=== PATIENT | male | born 1990 ===

== ENCOUNTER 2016-09-10 09:54 | Emergency (ER) | payer OTHER ==
[2016-09-10 10:24] VITALS: RESP 18; O2SAT 99
[2016-09-10 11:53] LABS: BASO % 0.5 % (0.0-2.0); EOS # 0.6 K/uL (0.0-0.7); EOS % 7.6 % (0.0-4.0); HEMATOCRIT 45.2 % (35.0-51.0); LYMPH # 2.2 K/uL (1.0-4.3); MEAN CORPUSCULAR HGB CONC 34.5 g/dL (33.0-37.0); MONO # 0.5 K/uL (0.0-0.8); MONO % 6.4 % (0.0-10.0); NEUT # 4.2 K/uL (1.8-7.0); NEUT % 56.5 % (50.0-75.0); NRBC % 0.2 % (0.0-0.0); RED CELL DISTRIBUTION WIDTH 13.5 % (11.5-14.5); WHITE BLOOD COUNT 7.4 K/uL (4.8-10.8)
[2016-09-10 12:09] LABS: ALB/GLOB RATIO 1.3 (1.0-2.1); ALKALINE PHOSPHATASE 54 U/L (38-126); ALT/SGPT 53 U/L (21-72); AST/SGOT 36 U/L (17-59); BILIRUBIN,TOTAL 0.3 mg/dl (0.2-1.3); BLOOD UREA NITROGEN 10 mg/dl (9-20); CALCIUM 9.7 mg/dL (8.4-10.2); CARBON DIOXIDE 24 mmol/L (22-30); CHLORIDE 104 mmol/L (98-107); GFR AFRICAN-AMERICAN > 60; GLUCOSE,RANDOM 94 mg/dL (75-110); POTASSIUM 4.1 MMOL/L (3.6-5.0); SODIUM 141 mmol/l (132-148)
--- NOTE | 2016-09-10 12:12 | ED PDOC ---
HPI: General Adult Time Seen by Provider: 09/10/16 10:35 Chief Complaint (Nursing): Dizziness/Lightheaded Chief Complaint (Provider): SOB History Per: Patient History/Exam Limitations: no limitations Current Symptoms Are (Timing): Intermittent Episodes Additional Complaint(s): Nirav Corrales is a 26 year old male with no surgical history and a history of HTN that presents to the ED with a chief complaint of intermittent shortness of breath and dizziness that began one day ago. He denies any chest pain, but states that he has lower back pain that worsens when he is lifting. Otherwise he has experienced no back pain, fever, or vomiting. Past Medical History Reviewed: Historical Data, Nursing Documentation, Vital Signs Vital Signs: Last Vital Signs Temp 97.7 F 09/10/16 14:25 Pulse 52 L 09/10/16 14:25 Resp 18 09/10/16 14:25 BP 127/92 H 09/10/16 14:25 Pulse Ox 99 09/10/16 14:25 - Medical History PMH: HTN - Surgical History Surgical History: No Surg Hx - Family History Family History: States: Unknown Family Hx - Social History Current smoker - smoking cessation education provided: No Alcohol: None Drugs: Denies - Home Medications Home Medications: Ambulatory Orders Medication Instructions Recorded Meclizine HCl [Antivert] 25 mg PO TID #15 tablet 06/19/15 Albuterol HFA [Ventolin HFA 90 2 puff IH [id number] PRN #1 inhaler 07/10/15 mcg/actuation (8 g)] Prednisone 2 tab PO DAILY #10 tablet 07/10/15 Epinephrine HCl [Epipen 0.3 mg IM ONCE PRN #1 packet 04/30/16 Auto-Injector] predniSONE [predniSONE Tab] 20 mg PO DAILY #12 tab 04/30/16 - Allergies Allergies/Adverse Reactions: Allergies Allergy/AdvReac Type Severity Reaction Status Date / Time FISH Allergy REDNESS Verified 09/10/16 10:15 Review of Systems Constitutional: Negative for: Fever Cardiovascular: Negative for: Chest Pain Respiratory: Positive for: Shortness of Breath Gastrointestinal: Negative for: Vomiting Musculoskeletal: Positive for: Back Pain (sllght lower back pain) Neurological: Positive for: Dizziness Physical Exam - Reviewed Nursing Documentation Reviewed: Yes Vital Signs Reviewed: Yes - Physical Exam Appears: Positive for: Non-toxic, No Acute Distress Head Exam: Positive for: ATRAUMATIC, NORMOCEPHALIC Skin: Positive for: Normal Color, Warm Cardiovascular/Chest: Positive for: Regular Rate, Rhythm. Negative for: Murmur Respiratory: Positive for: Normal Breath Sounds. Negative for: Wheezing Gastrointestinal/Abdominal: Positive for: Normal Exam, Soft. Negative for: Tenderness Back: Positive for: Normal Inspection Neurologic/Psych: Positive for: Alert, Oriented. Negative for: Motor/Sensory Deficits - Laboratory Results Result Diagrams: 09/10/16 11:30 09/10/16 11:30 - ECG O2 Sat by Pulse Oximetry: 99 (RA) Pulse Ox Interpretation: Normal Medical Decision Making Medical Decision Making: Impression: Shortness of Breath, also back pain rule out pneumonia Plan: * EKG * Chest X-Ray * CMP * Troponin I * Ibuprofen 600 mg PO * Reevaluation Patient's labs and Xrays were read as normal , and they are stable for discharge. pt instructed to follo wup with clinic Scribe Attestation: Documented by Carli Mcknight, acting as a scribe for Felipe Gibson MD. Provider Scribe Attestation: All medical record entries made by the Scribe were at my direction and personally dictated by me. I have reviewed the chart and agree that the record accurately reflects my personal performance of the history, physical exam, medical decision making, and the department course for this patient. I have also personally directed, reviewed, and agree with the discharge instructions and disposition. Disposition - Clinical Impression Clinical Impression: Dizziness - Patient ED Disposition Is Patient to be Admitted: No Counseled Patient/Family Regarding: Studies Performed, Diagnosis - Disposition Referrals: [facility] [Outside] [facility] [Outside] Disposition: Routine/Home Disposition Time: 01:00 Condition: IMPROVED Additional Instructions: follow up with your primary doctor in 1-2 days return to the ED with any worsening or concerning symptoms. Instructions: Dizziness (ED) Forms: [facility] ED School/Work Excuse Print Language: TAIWANESE
--- NOTE | 2016-09-10 13:29 | RAD ---
HISTORY: pain COMPARISON: Chest x-ray performed 07/10/15 TECHNIQUE: Chest PA and lateral FINDINGS: Examination limited by habitus. LUNGS: No focal consolidation. Please note that chest x-ray has limited sensitivity for the detection of pulmonary masses. PLEURA: No significant pleural effusion identified. No definite pneumothorax . CARDIOVASCULAR: The cardiomediastinal silhouette appears within normal limits of size. OSSEOUS STRUCTURES: No acute osseous abnormality identified. VISUALIZED UPPER ABDOMEN: Unremarkable. OTHER FINDINGS: None. IMPRESSION: No focal consolidation, significant pleural effusion, or definite pneumothorax identified.
[2016-09-10 14:27] VITALS: BP 127/92; PULSE 52; TEMP 97.7
--- NOTE | 2016-09-10 17:25 | CARD ---
APPROVED REPORT EKG Measurement Heart [id number] <Conclusion> Normal sinus rhythm Voltage criteria for left ventricular hypertrophy Nonspecific ST and T wave abnormality Abnormal ECG
== END 2016-09-10 14:28 | disposition home or self-care (01) ==
LOC: H.ER 09:54
DX: R42 Dizziness and giddiness (principal); R06.02 Shortness of breath; I10 Essential (primary) hypertension

== ENCOUNTER 2016-10-01 12:14 | Emergency (ER) | payer OTHER ==
[2016-10-01 12:34] VITALS: BP 138/78; PULSE 56; RESP 18; TEMP 97.5; O2SAT 99
--- NOTE | 2016-10-01 12:50 | ED PDOC ---
HPI: Headache Time Seen by Provider: 10/01/16 12:35 Chief Complaint (Nursing): Headache Chief Complaint (Provider): Headache Onset/Duration Of Symptoms: Days (x4) Current Symptoms Are (Timing): Still Present Additional Complaint(s): Nirav Corrales is a 26 year old male who presents to the emergency department with a complaint of mild headache for 4 days. Denied fever, chills, nausea, and vomiting. Patient took motrin at onset of headache 4 days ago and it helped a little but he has not taken any meds since then. He states headache comes and goes. Patient has also had intermittent dizziness and vertigo for the past few weeks for which he take meclizine. Patient rates current headache as a /. PMD: none provided Past Medical History Reviewed: Historical Data, Nursing Documentation, Vital Signs Vital Signs: Last Vital Signs Temp 97.5 F L 10/01/16 12:31 Pulse 56 L 10/01/16 12:31 Resp 18 10/01/16 12:31 BP 138/78 10/01/16 12:31 Pulse Ox 99 10/01/16 12:31 - Medical History PMH: No Chronic Diseases - Surgical History Surgical History: No Surg Hx - Family History Family History: States: No Known Family Hx - Living Arrangements Living Arrangements: With Family - Social History Current smoker - smoking cessation education provided: Yes Alcohol: None Drugs: Denies - Home Medications Home Medications: Ambulatory Orders Medication Instructions Recorded Meclizine HCl [Antivert] 25 mg PO TID #15 tablet 06/19/15 Albuterol HFA [Ventolin HFA 90 2 puff IH [id number] PRN #1 inhaler 07/10/15 mcg/actuation (8 g)] Prednisone 2 tab PO DAILY #10 tablet 07/10/15 Epinephrine HCl [Epipen 0.3 mg IM ONCE PRN #1 packet 04/30/16 Auto-Injector] predniSONE [predniSONE Tab] 20 mg PO DAILY #12 tab 04/30/16 Ibuprofen [Motrin] 600 mg PO Q6 PRN #15 tab 10/01/16 - Allergies Allergies/Adverse Reactions: Allergies Allergy/AdvReac Type Severity Reaction Status Date / Time FISH Allergy REDNESS Verified 09/10/16 10:15 Review of Systems ROS Statement: Except As Marked, All Systems Reviewed And Found Negative Constitutional: Negative for: Fever, Chills ENT: Negative for: Ear Pain, Nose Congestion Cardiovascular: Negative for: Chest Pain, Palpitations Respiratory: Negative for: Shortness of Breath Gastrointestinal: Negative for: Nausea, Vomiting Neurological: Positive for: Headache (mild; pain scale: 4/10, intermittent for 4 days, no trauma), Dizziness Physical Exam - Reviewed Nursing Documentation Reviewed: Yes Vital Signs Reviewed: Yes - Physical Exam Appears: Positive for: Well, No Acute Distress Head Exam: Positive for: ATRAUMATIC, NORMAL INSPECTION Skin: Positive for: Normal Color. Negative for: Rash Eye Exam: Positive for: Normal appearance, EOMI, PERRL ENT: Positive for: Normal ENT Inspection Neck: Positive for: Normal Cardiovascular/Chest: Positive for: Regular Rate, Rhythm Respiratory: Positive for: Normal Breath Sounds Neurologic/Psych: Positive for: Alert, Oriented, Gait (steady). Negative for: Aphasia, Facial Droop - ECG O2 Sat by Pulse Oximetry: 99 (RA) Pulse Ox Interpretation: Normal Medical Decision Making Medical Decision Making: Initial Impression: Headache Patient is well appearing, in no distress. Initial Plan: Motrin 600mg PO Reglan 10mg PO Headache resolved after meds given. Rx motrin given. Patient does not have PMD , he was referred to clinic for follow up. Patient is requesting work note which was given. Upon provider reevaluation patient is medically stable and requires no further treatment in the ED at this time. Patient will be discharged home with Rx for . Counseling was provided and all questions were answered regarding diagnosis and need for follow up with PCP. There is agreement to discharge plan. Return if symptoms persist or worsen. Clinical Impression: Headache Scribe Attestation: Documented by Karis Adamson, acting as a scribe for Becky Horner PA-C. Provider Scribe Attestation: All medical record entries made by the Scribe were at my direction and personally dictated by me. I have reviewed the chart and agree that the record accurately reflects my personal performance of the history, physical exam, medical decision making, and the department course for this patient. I have also personally directed, reviewed, and agree with the discharge instructions and disposition. Disposition - Clinical Impression Clinical Impression: Headache - Patient ED Disposition Is Patient to be Admitted: No Counseled Patient/Family Regarding: Diagnosis, Need For Followup, Rx Given - Disposition Referrals: [facility] [Outside] Disposition: Routine/Home Disposition Time: 13:11 Condition: STABLE Additional Instructions: Take rx meds as directed as needed for headache. Drink plenty of water on daily basis. Follow up with clinic in 2-3 days. Prescriptions: Ibuprofen [Motrin] 600 mg PO Q6 PRN #15 tab PRN Reason: Pain, Moderate (4-7) Instructions: General Headache (ED) Forms: [facility] ED School/Work Excuse Print Language: TRISTANIAN
== END 2016-10-01 13:15 | disposition home or self-care (01) ==
LOC: H.ER 12:14
DX: R51 Headache (principal)

== ENCOUNTER 2017-01-11 20:10 | Emergency (ER) | payer SELFPAY ==
[2017-01-11 20:18] VITALS: RESP 16; TEMP 98.2; O2SAT 100
--- NOTE | 2017-01-11 20:43 | ED PDOC ---
HPI: Abdomen Time Seen by Provider: 01/11/17 20:27 Chief Complaint (Nursing): Abdominal Pain Chief Complaint (Provider): vertigo History Per: Patient Additional Complaint(s): To ED for evaluation vomiting and abdominal pain, onset today while at work. Patient reports some dizziness. Took Motrin at 4:20p with some relief in pain. Past Medical History Vital Signs: Last Vital Signs Temp 98.2 F 01/11/17 20:14 Pulse 61 01/11/17 20:42 Resp 16 01/11/17 20:14 BP 139/88 01/11/17 20:14 Pulse Ox 100 01/11/17 20:43 - Medical History PMH: HTN - Family History Family History: States: Unknown Family Hx - Home Medications Home Medications: Ambulatory Orders Medication Instructions Recorded Meclizine [Meclizine*] 25 mg PO Q6 #30 tab 01/11/17 Methylprednisolone [Medrol Dose 4 mg PO DAILY #21 mg 01/11/17 Pack (21 tabs)] - Allergies Allergies/Adverse Reactions: Allergies Allergy/AdvReac Type Severity Reaction Status Date / Time FISH Allergy REDNESS Verified 01/11/17 20:13 - Laboratory Results Result Diagrams: 01/11/17 20:45 01/11/17 20:45 - ECG O2 Sat by Pulse Oximetry: 100 Disposition - Clinical Impression Clinical Impression: Vertigo - Disposition Condition: STABLE Prescriptions: Meclizine [Meclizine*] 25 mg PO Q6 #30 tab Methylprednisolone [Medrol Dose Pack (21 tabs)] 4 mg PO DAILY #21 mg Instructions: Vertigo (ED) Forms: [employer] ([place]), [facility] ED School/Work Excuse
[2017-01-11 21:00] LABS: BASO % 0.5 % (0.0-2.0); EOS # 0.6 K/uL (0.0-0.7); EOS % 7.6 % (0.0-4.0); LYMPH # 2.6 K/uL (1.0-4.3); LYMPH % 32.4 % (20.0-40.0); MEAN CELL VOLUME 89.1 fl (80.0-94.0); MEAN CORPUSCULAR HEMOGLOBIN 29.7 pg (27.0-31.0); MEAN CORPUSCULAR HGB CONC 33.3 g/dL (33.0-37.0); MEAN PLATELET VOLUME 8.4 fl (7.2-11.7); MONO # 0.8 K/uL (0.0-0.8); MONO % 9.4 % (0.0-10.0); NEUT % 50.1 % (50.0-75.0); NRBC % 0.1 % (0.0-0.0); RED CELL DISTRIBUTION WIDTH 13.3 % (11.5-14.5)
[2017-01-11 21:12] LABS: ALB/GLOB RATIO 1.3 (1.0-2.1); ALKALINE PHOSPHATASE 57 U/L (38-126); ALT/SGPT 47 U/L (21-72); AST/SGOT 33 U/L (17-59); BILIRUBIN,TOTAL 0.2 mg/dl (0.2-1.3); BLOOD UREA NITROGEN 17 mg/dl (9-20); CALCIUM 9.6 mg/dL (8.4-10.2); CARBON DIOXIDE 26 mmol/L (22-30); CHLORIDE 103 mmol/L (98-107); GFR AFRICAN-AMERICAN > 60; GLUCOSE,RANDOM 115 mg/dL (75-110); POTASSIUM 4.1 MMOL/L (3.6-5.0); SODIUM 141 mmol/l (132-148); TOTAL PROTEIN 7.8 G/DL (6.3-8.2)
[2017-01-11 21:20] LABS: RBC URINE 2 /hpf (0-3); WBC URINE < 1 /hpf (0-5)
[2017-01-11 22:28] LABS: URINE COLOR LIGHT YELLOW (YELLOW)
[2017-01-11 22:29] LABS: URINE BILIRUBIN NEGATIVE (NEGATIVE); URINE BLOOD TRACE-INTACT (NEGATIVE); URINE GLUCOSE (UA) NEGATIVE (Normal); URINE KETONE NEGATIVE (NEGATIVE); URINE LEUKOCYTE ESTERASE NEGATIVE Leu/uL (Negative); URINE PROTEIN 30 mg/dL (NEGATIVE); URINE UROBILINOGEN 0.2 mg/dL (0.2-1.0)
[2017-01-11 22:55] VITALS: BP 125/80; PULSE 75
--- NOTE | 2017-01-12 09:09 | CARD ---
APPROVED REPORT EKG Measurement Heart [id number] <Conclusion> Normal sinus rhythm Voltage criteria for left ventricular hypertrophy ST elevation, consider early repolarization, pericarditis, or injury Nonspecific ST and T wave abnormality Abnormal ECG
== END 2017-01-11 22:55 | disposition home or self-care (01) ==
LOC: H.ER 20:10
DX: R42 Dizziness and giddiness (principal); I10 Essential (primary) hypertension
CPT/HCPCS: 80053; 81003; 82948; 84484; 85025; 93005; 99283; G0480; J2405

== ENCOUNTER 2017-08-14 09:08 | Emergency (ER) | payer OTHER ==
[2017-08-14 09:12] VITALS: BMI 37.3
[2017-08-14 09:14] VITALS: O2SAT 97
--- NOTE | 2017-08-14 10:20 | RAD ---
HISTORY: cough COMPARISON: Chest radiograph dated 09/10/2016 TECHNIQUE: Chest PA and lateral FINDINGS: LUNGS: No active pulmonary disease. PLEURA: No significant pleural effusion identified. No pneumothorax apparent. CARDIOVASCULAR: Normal. OSSEOUS STRUCTURES: No significant abnormalities. VISUALIZED UPPER ABDOMEN: Normal. OTHER FINDINGS: None. IMPRESSION: No active disease.
[2017-08-14] MEDS ORDERED: Promethazine/Cod 6.25mg-10mg/5ml Syr UD PO ONE (10:41)
--- NOTE | 2017-08-14 10:41 | ED PDOC ---
History of Present Illness History of Present Illness: 27 y old M presents to ED with complaint of worsening persistent cough, chest congestion, nasal discharge and congestions x 4 days. PMHx includes vertigo and hypertension (not on medication). Associated symptoms are nausea, body aches and subjective fever. Denies sputum production, headaches, dizziness, weakness, chills, vomiting, chest pain or diarrhea. Niece has a cold at home. He took OTC cold medicine (Bronchochem), but this provided no relief. PMD: none SurgHx: none Meds: Motrin PRN Allergies: NKDA <Michelle Moreau - Last Filed: 08/14/17 19:12> HPI: Influenza History Per: Patient Exam Limitations: no limitations Have you had recent travel within the past 21 days to any of: No Onset/Duration Of Symptoms: Days (4) Symptoms include: fever (subjective), bodyaches, cough, nasal congestion. denies: headache, sore throat, vomiting, diarrhea, syncope, chest pain, difficulty breathing, seizure, rash, blurry vision Sick Contacts (Context): Family Member(s) (niece) <Michelle Moreau - Last Filed: 08/14/17 19:12> <Franco Hernandez III - Last Filed: 08/15/17 09:57> Time Seen by Provider: 08/14/17 09:26 Chief Complaint: Cough, Cold, Congestion Past Medical History Vital Signs: Last Vital Signs Temp 98.5 F 08/14/17 09:12 Pulse 70 08/14/17 09:12 Resp 16 08/14/17 09:12 BP 135/82 08/14/17 09:12 Pulse Ox 97 08/14/17 09:12 - Medical History PMH: HTN Other PMH: vertigo - Surgical History Surgical History: No Surg Hx - Family History Family History: States: Unknown Family Hx - Social History Current smoker - smoking cessation education provided: No Alcohol: Occasional Drugs: Denies <Michelle Moreau - Last Filed: 08/14/17 19:12> Vital Signs: Last Vital Signs Temp 97.9 F 08/14/17 11:53 Pulse 63 08/14/17 11:53 Resp 15 08/14/17 11:53 BP 144/91 H 08/14/17 11:53 Pulse Ox 97 08/14/17 19:13 <Franco Hernandez III - Last Filed: 08/15/17 09:57> - Home Medications Home Medications: Ambulatory Orders Medication Instructions Recorded Meclizine [Meclizine*] 25 mg PO Q6 #30 tab 01/11/17 Methylprednisolone [Medrol Dose 4 mg PO DAILY #21 mg 01/11/17 Pack (21 tabs)] Ibuprofen [Motrin Tab] 600 mg PO Q6 PRN #15 tab 08/14/17 Promethazine HCl/Codeine 5 ml PO Q6 PRN #50 syrup 08/14/17 [Prometh-Codein 6.25-10 mg/5 ml] - Allergies Allergies/Adverse Reactions: Allergies Allergy/AdvReac Type Severity Reaction Status Date / Time FISH Allergy REDNESS Verified 01/11/17 20:13 Review of Systems Constitutional: Positive for: Fever (subjective). Negative for: Chills, Sweats , Weakness Eyes: Negative for: Vision Change ENT: Positive for: Nose Discharge, Nose Congestion. Negative for: Ear Pain, Ear Discharge, Throat Pain Cardiovascular: Negative for: Chest Pain, Palpitations, Light Headedness Respiratory: Positive for: Cough. Negative for: Shortness of Breath, Hemoptysis Gastrointestinal: Positive for: Nausea. Negative for: Vomiting, Abdominal Pain , Diarrhea, Constipation Genitourinary Male: Negative for: Dysuria, Frequency Musculoskeletal: Negative for: Neck Pain, Shoulder Pain, Arm Pain Skin: Negative for: Rash, Lesions Neurological: Negative for: Weakness, Numbness <Michelle Moreau - Last Filed: 08/14/17 19:12> Physical Exam - Physical Exam Appears: Positive for: No Acute Distress Head Exam: Positive for: ATRAUMATIC, NORMOCEPHALIC Skin: Positive for: Normal Color, Warm, Dry Eye Exam: Positive for: EOMI, PERRL ENT: Positive for: Nasal Congestion, Pharyngeal Erythema, Tonsillar Swelling. Negative for: Tonsillar Exudate Neck: Positive for: Painless ROM, Supple Cardiovascular/Chest: Positive for: Regular Rate, Rhythm. Negative for: Gallop , Murmur Respiratory: Positive for: Normal Breath Sounds. Negative for: Accessory Muscle Use, Rales, Rhonchi, Wheezing Pulses-Carotid (L): 2+ Pulses-Carotid (R): 2+ Pulses-Radial (L): 2+ Pulses-Radial (R): 2+ Gastrointestinal/Abdominal: Positive for: Bowel Sounds (present), Soft. Negative for: Tenderness Back: Positive for: Normal Inspection Extremity: Positive for: Normal ROM. Negative for: Pedal Edema Lymphatic: Positive for: Adenopathy (mild submandibular) Neurologic/Psych: Positive for: Alert, roll off driver II-XII (grossly intact), Oriented, Mood/Affect (normal/full range), Gait (normal). Negative for: Motor/Sensory Deficits <Michelle Moreau - Last Filed: 08/14/17 19:12> - ECG O2 Sat by Pulse Oximetry: 97 - Progress ED Course And Treament: -CXR: -rapid flu: -rapid strep: -Tylenol 625mg PO once -Promethazine/Codeine 5mL PO once <Michelle Moreau - Last Filed: 08/14/17 19:12> Disposition - Disposition Disposition Time: 11:50 <Michelle Moreau - Last Filed: 08/14/17 19:12> <Franco Hernandez III - Last Filed: 08/15/17 09:57> - Clinical Impression Clinical Impression: Cough, URI (upper respiratory infection) - Disposition Referrals: [facility] [Outside] Condition: STABLE Additional Instructions: Return to ER for any worse or new symptoms/. Do not drive or operate machinery while taking cough medicine with codeine as may cause drowsiness. Prescriptions: Ibuprofen [Motrin Tab] 600 mg PO Q6 PRN #15 tab PRN Reason: Pain, Moderate (4-7) Promethazine HCl/Codeine [Prometh-Codein 6.25-10 mg/5 ml] 5 ml PO Q6 PRN #50 syrup PRN Reason: Cough Instructions: Viral Upper Respiratory Infection, Adult (DC) Forms: [employer] ([place]), [facility] ED School/Work Excuse Print Language: NICARAGUAN Attending/Attestation - Attestation I have personally seen and examined this patient.: Yes I have fully participated in the care of the patient.: Yes I have reviewed all pertinent clinical information: Yes Notes (Text): 08/15/17 09:56 pt seen/examined w resident and agree w findings <Franco Hernandez III - Last Filed: 08/15/17 09:57>
[2017-08-14] MEDS ORDERED: Promethazine/Cod 6.25mg-10mg/5ml Syr UD ONE (11:51)
[2017-08-14 11:54] VITALS: BP 144/91; PULSE 63; RESP 15; TEMP 97.9
== END 2017-08-14 11:57 | disposition home or self-care (01) ==
LOC: H.ER 09:08
DX: J06.9 Acute upper respiratory infection, unspecified (principal); I10 Essential (primary) hypertension